=== PATIENT | female | born 1980 | race Caucasian/White ===

== ENCOUNTER 2019-09-16 12:19 | Emergency (ER) | payer BC ==
[~2019-09-16] VITALS: Ht 167.6 cm; Wt 93.6 kg
[~2019-09-16 12:19] MED LIST: CALCCHW12; PRIL20CA; VICO5TAB
[2019-09-16] MEDS ORDERED: DOCU100C16 (12:31)
[2019-09-16] MEDS ORDERED: PANT40TA3 (12:31)
[2019-09-16] MEDS ORDERED: LEVO112T2 (12:31)
[2019-09-16 13:41] LABS: BASO % 0.3 % (0.0-1.0); EOS # 0.4 10^3/uL (0.0-0.5); HEMATOCRIT 40.3 % (36.0-47.0); HEMOGLOBIN 13.3 g/dl (12.0-15.5); LYMPH # 2.7 10^3/uL (1.5-5.0); LYMPH % 28.3 % (24.0-44.0); MEAN CORPUSCULAR HEMOGLOBIN 29.5 pg (27.0-33.0); MEAN CORPUSCULAR VOLUME 89.4 fl (80.0-96.0); MONO # 0.4 10^3/uL (0.0-0.8); MONO % 4.1 % (0.0-5.0); NEUTROPHILS % 63.1 % (36.0-66.0); PLATELET COUNT, AUTOMATED 342 10^3/uL (150-450); RED BLOOD COUNT 4.51 10^6/uL (4.00-5.40); WHITE BLOOD COUNT 9.5 10^3/uL (4.0-10.0)
[2019-09-16 13:59] LABS: ALBUMIN 3.8 GM/DL (3.2-5.2); ALT/SGPT 19 U/L (12-78); BILIRUBIN,TOTAL 0.5 MG/DL (0.2-1.0); BLOOD UREA NITROGEN 15 MG/DL (7-18); CALCIUM LEVEL 9.7 MG/DL (8.5-10.1); CARBON DIOXIDE LEVEL 29 MEQ/L (21-32); CHLORIDE LEVEL 107 MEQ/L (98-107); CREATININE FOR GFR 0.82 MG/DL (0.55-1.30); GLOMERULAR FILTRATION RATE > 60.0 (>58); GLUCOSE, FASTING 106 MG/DL (70-100); LIPASE 82 U/L (73-393); POTASSIUM SERUM 4.3 MEQ/L (3.5-5.1); SODIUM LEVEL 141 MEQ/L (136-145); TOTAL PROTEIN 7.2 GM/DL (6.4-8.2)
[2019-09-16] MEDS ORDERED: NS 1,000 ML IV ONE (14:00)
[2019-09-16] MEDS ORDERED: ISOVUE-370 76% 100ML VIAL (Q9967) As Ordered ONE (14:07)
--- NOTE | 2019-09-16 14:36 | REP ---
Clinical: Acute right lower quadrant pain. Technique: Axial contrast enhanced images from the lung bases to the pubic symphysis using 100 ml Isovue 370 intravenous contrast material with coronal and sagittal re-formations. Findings: Lung bases are clear. Visualized heart and pericardium normal. Fatty infiltration to the liver noted with 1.8 cm benign hemangioma along the posterior segment right lobe. Spleen, pancreas, bilateral adrenal glands and kidneys are normal. Evidence of prior cholecystectomy. The enteric system is without obstruction or acute inflammatory process. Normal terminal ileum, cecum and appendix identified in the right lower quadrant. Pelvis demonstrates normal bladder and evidence for prior hysterectomy. No ascites. No free air. No adenopathy. Abdominal aorta and vasculature normal. Musculoskeletal structures are intact. Impression: No acute abdominopelvic pathology appreciated. 1.8 cm hepatic hemangioma. Normal terminal ileum, cecum and appendix in the right lower quadrant. Electronically Signed by Andrea Ya MD 09/16/2019 02:26 P
[2019-09-16] MEDS ORDERED: METOCLOPRAMIDE INJ 10MG/2ML VIAL (J2765) IV ONE (15:30)
[2019-09-16] MEDS ORDERED: ONDA4TAB6 PO (16:34)
[2019-09-16] MEDS ORDERED: KETO10TAB PO (16:34)
--- NOTE | 2019-09-16 16:37 | REP ---
RIGHT UPPER QUADRANT ULTRASOUND: Real-time sonographic evaluation of the right upper quadrant performed. The patient has had a prior cholecystectomy. There is no significant intrahepatic biliary dilatation. Common bile duct measures 9 mm. Liver demonstrates diffuse increased echotexture suggesting diffuse fatty infiltration. Septated cyst is seen in the posterior segment of the right lobe measuring 2.6 x 2.0 x 2.3 cm. Visualized pancreas is grossly unremarkable. Right kidney demonstrates normal size 12.4 cm in length with no hydronephrosis. No free fluid is seen. IMPRESSION: Status post cholecystectomy. No significant biliary dilatation. Septated cyst posterior segment right lobe liver 2.6 cm in maximum diameter. No free fluid. Electronically Signed by Olvin Duval MD 09/16/2019 04:43 P
[2019-09-16 16:45] VITALS: BP 115/61
== END 2019-09-16 17:30 | disposition home or self-care (01) ==
LOC: M ED 12:19
DX: R10.9 Unspecified abdominal pain (principal); R11.2 Nausea with vomiting, unspecified; K21.9 Gastro-esophageal reflux disease without esophagitis; Z79.899 Other long term (current) drug therapy; Z79.890 Hormone replacement therapy
CPT/HCPCS: 74177; 76705; 80053; 81001; 83690; 85025; 96361; 96374; 99284; J2765; Q9967

== ENCOUNTER → 2021-07-10 | Outpatient (REF) | payer BC ==
[~2021-07-10] MED LIST changes: +DOCU100C16; +KETO10TAB PO; +LEVO112T2; +ONDA4TAB6 PO; +PANT40TA29
== END ==
LOC: M LAB REF 19:22
PROVIDERS: ATTEND Physician Assistant
DX: D22.4 Melanocytic nevi of scalp and neck (principal); D22.30 Melanocytic nevi of unspecified part of face

== ENCOUNTER → 2022-12-11 | Outpatient (REF) | payer BC ==
[2022-12-11 17:32] LABS: ALBUMIN 3.9 G/DL (3.2-5.2); BILIRUBIN,DIRECT 0.2 MG/DL (<0.4); BILIRUBIN,TOTAL 0.5 MG/DL (0.3-1.2); PHOSPHORUS LEVEL 4.9 MG/DL (2.5-4.9); TOTAL PROTEIN 7.1 G/DL (5.7-8.2)
[2022-12-11 18:34] LABS: C REACTIVE PROTEIN QUANTITATIV 1.1 MG/DL (<1.0)
== END ==
LOC: M SFHCRHEU 10:57
PROVIDERS: ATTEND Internal Medicine
DX: R79.82 Elevated C-reactive protein (CRP) (principal); R25.2 Cramp and spasm; R53.83 Other fatigue